=== PATIENT | female | born 1980 | race Caucasian/White ===

== ENCOUNTER 2017-09-09 11:09 | Emergency (ER) | payer MEDICAID, OTHER ==
[~2017-09-09] VITALS: Ht 160 cm; Wt 75.0 kg
[2017-09-09] MEDS ORDERED: SODIUM CHLORIDE 0.9% 1,000 ML IV ONE (12:19)
[2017-09-09 12:42] LABS: BASOPHILS % 0.4 % (0.0-2.0); EOSINOPHILS % 0.5 % (0.0-5.0); HEMATOCRIT. 38.4 % (36.0-48.0); HEMOGLOBIN. 13.7 g/dL (12.0-16.0); LYMPHOCYTES % 13.6 % (20.0-50.0); MEAN CORPUSCULAR HEMOGLOBIN 30.6 pg (28.0-32.0); MEAN CORPUSCULAR VOLUME 85.5 fL (81.0-99.0); MEAN PLATELET VOLUME 8.1 fl (7.4-10.4); NEUTROPHILS % 79.5 % (40.0-76.0); PLATELET 203 x1000/uL (130-400); RED BLOOD CELL COUNT 4.49 mill/uL (4.2-5.4)
[2017-09-09 12:54] LABS: HCG SCREEN NEGATIVE
[2017-09-09 12:59] LABS: CARBON DIOXIDE 27 mEq/L (21-32); CHLORIDE 106 mEq/L (98-107); TROPONIN I < 0.02 ng/mL (0.00-0.04)
[2017-09-09 13:00] LABS: CREATINE KINASE MB FRACTION 0.6 ng/mL (0.5-3.6)
[2017-09-09 13:43] VITALS: BP 109/57
== END 2017-09-09 13:48 | disposition home or self-care (01) ==
LOC: ER 11:23
DX: R55 Syncope and collapse (principal); E86.0 Dehydration; F41.9 Anxiety disorder, unspecified; F32.9 Major depressive disorder, single episode, unspecified; D72.829 Elevated white blood cell count, unspecified; F45.8 Other somatoform disorders; R00.2 Palpitations
CPT/HCPCS: 36415; 71010; 80048; 82553; 83735; 83880; 84484; 84703; 85025; 93005; 96360; 99285; J7030; Z7610

== ENCOUNTER 2020-08-26 19:28 | Emergency (ER) | payer MEDICAID ==
[~2020-08-26] VITALS: Ht 172.7 cm; Wt 96.0 kg
[2020-08-26 22:06] VITALS: BP 148/86
== END 2020-08-26 22:22 | disposition home or self-care (01) ==
LOC: ER 19:28
DX: H10.31 Unspecified acute conjunctivitis, right eye (principal)
CPT/HCPCS: 99282; 99283